=== PATIENT | female | born 1965 | race Caucasian/White ===

== ENCOUNTER 2024-03-04 23:12 | Emergency (ER) | payer OTHER ==
[~2024-03-04] VITALS: Ht 149.9 cm; Wt 56.7 kg
[2024-03-05] MEDS: KETOROLAC TROMETHAMINE 30 MG INJ IM ONE (01:06)
[2024-03-05] MEDS ORDERED: KETOROLAC TROMETHAMINE 30 MG INJ ONE (01:07)
[2024-03-05] MEDS ORDERED: ACET1TAB23 PO (01:31)
[2024-03-05] MEDS ORDERED: DICL387C TP (01:31)
[2024-03-05] MEDS ORDERED: ACETAMINOPHEN/CODEINE 300-30 MG TABLET PO ONE (09:15)
[2024-03-05] MEDS ORDERED: ACETAMINOPHEN ES 500 MG TABLET ONE (09:19)
[2024-03-05] MEDS: ACETAMINOPHEN ES 500 MG TABLET PO ONE (09:20)
[2024-03-05] MEDS ORDERED: BACITRACIN ZINC OINT 15 GM TUBE ONE (09:35)
[2024-03-05] MEDS: BACITRACIN OPHT OINT 3.5 GM TUBE OP ONE (09:36)
[2024-03-05 09:48] VITALS: BP 131/74; TEMP 98; O2SAT 99
== END 2024-03-05 09:50 | disposition home or self-care (01) ==
LOC: ER 23:13
DX: G89.29 Other chronic pain (principal); M54.50 Low back pain, unspecified; M79.661 Pain in right lower leg; Z79.899 Other long term (current) drug therapy
CPT/HCPCS: 73590; A4606; A4663; A9150; J1885

== ENCOUNTER 2024-06-12 00:29 | Emergency (ER) | payer OTHER ==
[~2024-06-12] VITALS: Ht 149.9 cm; Wt 56.7 kg
[~2024-06-12 00:29] MED LIST: ACET1TAB23 PO; DICL387C TP
[2024-06-12] MEDS ORDERED: KETOROLAC TROMETHAMINE 30 MG INJ ONE (01:24)
[2024-06-12] MEDS: KETOROLAC TROMETHAMINE 30 MG INJ IM ONE (01:30)
[2024-06-12] MEDS ORDERED: HYDROCODONE/APAP 5-325MG TABLET ONE (03:06)
[2024-06-12] MEDS: HYDROCODONE/APAP 5-325MG TABLET PO ONE (03:15)
[2024-06-12 07:45] VITALS: BP 131/89; O2SAT 99
== END 2024-06-12 07:56 | disposition home or self-care (01) ==
LOC: ER 00:32
DX: G89.29 Other chronic pain (principal); M54.9 Dorsalgia, unspecified; Z98.890 Other specified postprocedural states; Z79.1 Long term (current) use of non-steroidal anti-inflammatories (NSAID); Z79.899 Other long term (current) drug therapy; Z60.2 Problems related to living alone
CPT/HCPCS: 99283; 96372; J1885; A4606; A4663

== ENCOUNTER 2024-06-29 01:57 | Emergency (ER) | payer OTHER ==
[~2024-06-29] VITALS: Ht 152.4 cm; Wt 65.8 kg
[2024-06-29] MEDS ORDERED: KETOROLAC TROMETHAMINE 30 MG INJ ONE (02:30)
[2024-06-29 02:32] LABS: *BILIRUBIN,URIN NEGATIVE (NEGATIVE); *BLOOD, URINE NEGATIVE (NEGATIVE); *CLARITY,URINE CLEAR (CLEAR); *COLOR,URINE YELLOW (YELLOW); *KETONES,URINE NEGATIVE (NEGATIVE); *PROTEIN,URINE NEGATIVE (NEGATIVE); *UROBILINOGEN,URINE 0.2 E.U./dl (NORMAL); LEUKOCYTE ESTERASE ,URINE NEGATIVE (NEGATIVE); NITRITE, URINE NEGATIVE (NEGATIVE); UGLUCOSE NEGATIVE (NEGATIVE)
[2024-06-29] MEDS: KETOROLAC TROMETHAMINE 30 MG INJ IM ONE (02:32)
[2024-06-29 02:50] LABS: *AMPHETAMINE, URINE NEGATIVE (NEGATIVE); *BARBITURATE, URINE NEGATIVE (NEGATIVE); *BENZODIAZEPINE, URINE NEGATIVE (NEGATIVE); *CANNABINOID, URINE NEGATIVE (NEGATIVE); *COCCAINE, URINE NEGATIVE (NEGATIVE); *OPIATE, URINE NEGATIVE (NEGATIVE); *PHENCYCLIDINE SCREEN,URINE NEGATIVE (NEGATIVE); FENTANYL, URINE NEGATIVE (NEGATIVE)
[2024-06-29] MEDS: HYDROCODONE/APAP 5-325MG TABLET PO ONE (05:01)
[2024-06-29] MEDS ORDERED: HYDROCODONE/APAP 5-325MG TABLET ONE (05:01)
[2024-06-29] MEDS ORDERED: NAPR500T6 PO (05:53)
[2024-06-29] MEDS ORDERED: CYCL5TAB PO (05:53)
[2024-06-29] MEDS ORDERED: LIDOCAINE 5% PATCH TD ONE (08:10)
[2024-06-29] MEDS: LIDOCAINE 5% PATCH TD ONE (08:11)
[2024-06-29 08:46] VITALS: BP 114/72; TEMP 208.4; O2SAT 98
== END 2024-06-29 08:30 | disposition home or self-care (01) ==
LOC: ER 01:59
DX: G89.29 Other chronic pain (principal); M54.50 Low back pain, unspecified; F17.200 Nicotine dependence, unspecified, uncomplicated; Z79.1 Long term (current) use of non-steroidal anti-inflammatories (NSAID); Z98.890 Other specified postprocedural states; Z79.899 Other long term (current) drug therapy; Z60.2 Problems related to living alone
CPT/HCPCS: 99285; 72131; 73551; 73590; 96372; 80307; 81003; J1885; A4606; A4663